=== PATIENT | male | born 1970 | race African-American/Black ===

== ENCOUNTER → 2020-04-28 | Outpatient (CLI) | payer OTHER | END | disposition home or self-care (01) | LOC: RADPV 09:19 | PROVIDERS: ATTEND Orthopaedic Surgery | DX: M19.012 Primary osteoarthritis, left shoulder (principal); M51.37 Other intervertebral disc degeneration, lumbosacral region; M47.816 Spondylosis without myelopathy or radiculopathy, lumbar region; M51.36 Other intervertebral disc degeneration, lumbar region; M76.892 Other specified enthesopathies of left lower limb, excluding foot; M50.323 Other cervical disc degeneration at C6-C7 level; M77.51 Other enthesopathy of right foot and ankle; M79.89 Other specified soft tissue disorders | CPT/HCPCS: 72040; 72100; 73030-TC; 73562-TC; 73610-TC ==